=== PATIENT | male | born 1950 | race Caucasian/White ===

== ENCOUNTER 2022-04-13 14:59 | Emergency (ER) | payer MEDICARE, OTHER ==
[2022-04-13 15:40] LABS: BASOPHIL 1.8 % (0-2); EOSINOPHIL 8.2 % (0-7); HCT 33.9 % (42.0-52.0); HGB 11.1 g/dl (13.2-18.0); LYMPHOCYTE 20.6 % (15-48); MCH 29.4 pg (25.0-31.0); MCHC 32.7 g/dL (32.0-36.0); MCV 89.7 fL (78.0-100.0); MONOCYTE 7.4 % (0-12); MPV 11.2 fL (6.0-9.5); NEUTROPHIL 60.9 % (41-80); NRBC 0; PLT 228 K/uL (150-400); RBC 3.78 M/uL (4.70-6.00); RDW 13.7 % (11.5-14.0); RETICULOCYTE COUNT 1.6 % (1.0-2.0); WBC 12.8 K/uL (4.0-10.5)
[2022-04-13 15:44] LABS: INR 1.08 (0.9-1.2); PROTHROMBIN TIME 13.7 SECONDS (11.9-13.9); PTT 34.1 SECONDS (24.9-34.6)
[2022-04-13 16:00] LABS: ALBUMIN 3.3 g/dL (3.4-5.0); BILIRUBIN - TOTAL 0.4 mg/dL (0.2-1.0); CREATININE 8.92 mg/dL (0.67-1.17); MAGNESIUM 1.2 mg/dL (1.8-2.4); POTASSIUM 4.5 mmol/L (3.5-5.1); TOTAL PROTEIN 7.3 g/dL (6.4-8.2)
[2022-04-13 16:27] LABS: LACTIC ACID 1.7 mmol/L (0.4-1.9)
[2022-04-13 18:31] LABS: CREATININE 8.82 mg/dL (0.67-1.17); POTASSIUM 4.7 mmol/L (3.5-5.1)
[2022-04-13 19:58] LABS: BILIRUBIN 1+ mg/dL (NEGATIVE); BLOOD TRACE-INTACT Ery/uL (NEGATIVE); CLARITY CLEAR (CLEAR); COLOR YELLOW (YELLOW); GLUCOSE (U) NORMAL (NORMAL); LEUKOCYTES NEGATIVE Leu/uL (NEGATIVE); NITRITE NEGATIVE (NEGATIVE); PROTEIN 2+ mg/dL (NEGATIVE); SPECIFIC GRAVITY >=1.030 (1.001-1.030); UROBILINOGEN 0.2 mg/dL (0.2-1.0); pH 5.5 (5.0-9.0)
[2022-04-13 20:05] LABS: URINARY WBC RARE
[2022-04-13 20:06] LABS: BACTERIA TRACE; SQUAMOUS EPITHELIAL CELLS RARE
== END 2022-04-14 00:15 | disposition other institution (70) ==
LOC: FER 14:59
PROVIDERS: Emergency Medicine
DX: N17.9 Acute kidney failure, unspecified (principal); I95.9 Hypotension, unspecified; R11.2 Nausea with vomiting, unspecified; R62.7 Adult failure to thrive; E11.9 Type 2 diabetes mellitus without complications; I10 Essential (primary) hypertension; J44.9 Chronic obstructive pulmonary disease, unspecified; Z20.822 Contact with and (suspected) exposure to COVID-19
CPT/HCPCS: 36415; 71250; 80048; 80053; 81001; 83605; 83690; 83735; 83880; 84145; 84443; 84484; 85025; 85610; 85730; 87040; 93005; 96361; 96374; 96375; J1170; J2270; J7030; U0002